=== PATIENT | male | born 1985 | race Caucasian/White ===

== ENCOUNTER 2019-05-30 15:04 | Emergency (ER) | payer OTHER, SELFPAY ==
[2019-05-30 15:24] VITALS: BP 136/64; PULSE 91; RESP 20; TEMP 36; O2SAT 100
--- NOTE | 2019-05-30 15:56 | ED.URI ---
HPI - URI/Sore Throat General Chief Complaint: Upper Respiratory Infection Stated Complaint: sore throat Time Seen by Provider: 05/30/19 15:45 Source: patient Mode of arrival: ambulatory Limitations: no limitations History of Present Illness HPI Narrative: Octaviano Dwyer is a 33 yo male with no PMH who cmes to express care with a diagnosis of influenza B from his primary care physician and he is taking Tamiflu and now test positive for strep. He has been febrile on and off for the last couple days states that he is unable to really swallow much besides thin fluids; has a lot of upper sinus congestion and states that he feels poorly Related Data Home Medications Medication Instructions Recorded Confirmed oseltamivir 75 mg BID 05/30/19 05/30/19 Allergies Allergy/AdvReac Type Severity Reaction Status Date / Time No Known Allergies Allergy Verified 05/30/19 15:28 Review of Systems Review of Systems: Narrative: CONSTITUTIONAL: Denies fever, chills, sweats. EYES: Denies visual changes, redness, discharge. ENT: Has rhinorrhea, congestion, sore throat, no otalgia. CARDIOVASCULAR: Denies chest pain, palpitations, edema. RESPIRATORY: Denies dyspnea, wheezing, mild cough GASTROINTESTINAL: Denies abdominal pain, nausea, vomiting, diarrhea. GENITOURINARY: Denies dysuria, hematuria, abnormal discharge SKIN: Denies rash or itching. NEUROLOGIC: Denies numbness, or focal weakness. PSYCHIATRIC: Denies anxiety or depression. [facility] Family History Family History Other Heart disease Social History Social History (Updated 05/30/19 @ 15:59 by Maya Gomez CNP) Smoking status: Never smoker Alcohol intake: current Gender identity (if verbalized by the patient): Male Comments At time of signature, I agree with nursing past medical, surgical, social and family history. There is no relevant family history pertinent to the presenting complaint. Exam Narrative: Exam Narrative: GENERAL: This is a well-nourished, well-developed patient, in moderate distress. HEAD: normocephalic, atraumatic. EYES: Sclera clear/white. Vision is grossly intact. EARS: External ears normal, Hearing grossly intact. NOSE: External nose normal with no obvious nasal discharge, nares without redness, no rhinorrhea. THROAT: Mucous membranes moist, posterior pharynx erythema; he is swallowing on exam NECK: Neck supple, non-tender withlymphadenopathy, CARDIOVASCULAR: Tachycardic and rhythm without murmurs, gallops, or rubs. RESPIRATORY: Clear to auscultation. Breath sounds equal bilaterally. No wheezes, rales, or rhonchi. GASTROINTESTINAL: Abdomen soft, non-tender, nondistended. SKIN: warm, intact with no suspicious lesions or rash, good texture and turgor. NEURO: awake, alert, and oriented to person, place and time. There were no obvious focal neurologic abnormalities. Steady gait EXTREMITIES: Normal range of motion. No edema.. BACK: Nontender without deformity or crepitance. Course Course Emergency Course: Strep positive Started on prednisone and penicillin Vital Signs Vital signs: Vital Signs Temperature 96.8 F L 05/30/19 15:24 Pulse Rate 91 05/30/19 15:24 Respiratory Rate 20 05/30/19 15:24 Blood Pressure 136/64 05/30/19 15:24 Pulse Oximetry 100 05/30/19 15:24 Temperature 96.8 F L 05/30/19 15:24 Pulse Rate 91 05/30/19 15:24 Respiratory Rate 20 05/30/19 15:24 Blood Pressure 136/64 05/30/19 15:24 Pulse Oximetry 100 05/30/19 15:24 MDM - URI/Sore Throat Differential Diagnosis Differential diagnosis: Likely upper respiratory infection, bronchitis, influenza and pharyngitis Lab Data Labs: Strep Screen Positive Group A Strep *(Reference Range: Negative)* Discharge Plan Discharge Clinical Impression: Influenza Pharyngitis Qualifiers: Pharyngitis/tonsillitis etiology: streptococcus Qualified Code(s): J0
== END 2019-05-30 16:04 | disposition home or self-care (01) ==
PROVIDERS: Emergency Provider Nurse Practitioner
DX: J10.1 Influenza due to other identified influenza virus with other respiratory manifestations (principal)
CPT/HCPCS: 87880; 99203; G0463

== ENCOUNTER 2020-05-09 10:10 | Emergency (ER) | payer OTHER, SELFPAY ==
[2020-05-09 10:30] VITALS: BP 179/91; PULSE 83; RESP 16; TEMP 36.3; O2SAT 98
--- NOTE | 2020-05-09 10:55 | ED.URI ---
HPI - URI/Sore Throat General Chief Complaint: Ear Stated Complaint: rt ear inf Time Seen by Provider: 05/09/20 10:45 Source: patient and RN notes reviewed Mode of arrival: ambulatory Limitations: no limitations History of Present Illness HPI Narrative: Patient presents today with a 1 week history of right ear pain and popping, nasal congestion in the morning and the evening. Reports the ear pain is waking him up at night. Denies cough, rhinorrhea, fever, sore throat, ear drainage. Currently rates his pain 6/10 and has been taking Tylenol and ibuprofen without much relief. History of several sinus and tear duct surgeries as a child. MD elicited complaint: nasal congestion and other (Ear pain) Related Data Allergies Allergy/AdvReac Type Severity Reaction Status Date / Time No Known Allergies Allergy Verified 05/30/19 15:28 Review of Systems Review of Systems: Narrative: CONSTITUTIONAL: Denies body aches, fever, chills, or sweats. EYES: Denies visual changes, redness, or discharge. ENT: Denies rhinorrhea, sore throat. + Right ear pain, nasal congestion CARDIOVASCULAR: Denies chest pain, palpitations, or edema. RESPIRATORY: Denies cough or dyspnea. GASTROINTESTINAL: Denies abdominal pain, nausea, vomiting, or diarrhea. GENITOURINARY: Denies dysuria or hematuria. SKIN: Denies rash, itching, or wounds. MUSCULOSKELETAL: Denies back pain, joint pain, or myalgia. NEUROLOGIC: Denies headache, numbness, tingling, or weakness. PSYCH: Denies depression or anxiety. [facility] Surgical History Surgical History (Updated 05/09/20 @ 10:57 by Elsy Duke, [employer], ) H/O sinus surgery Family History Family History Other Heart disease Social History Social History (Updated 05/09/20 @ 10:57 by Elsy Duke, [facility], ) Smoking status: Never smoker Tobacco type: smokeless tobacco Smokeless tobacco user: chewing tobacco Alcohol intake: current Gender identity (if verbalized by the patient): Male Comments At time of signature, I have reviewed and agree with nursing past medical, surgical, social and family history unless otherwise noted. Please see nursing chart for further information. There is no relevant family history pertinent to the presenting complaint Exam Narrative: Exam Narrative: GENERAL: Well-appearing, well-nourished, and in no acute distress. HEAD: Normocephalic, atraumatic. EYES: EOMI. No redness or drainage. Conjunctivae normal. ENT: Mucous membranes pink and moist. Nares congested. Bilateral erythematous and swollen nasal turbinates with purulent discharge. No rhinorrhea. TMs normal bilaterally with small amount of clear fluid behind them. Throat normal. Uvula midline. NECK: Normal AROM. Supple. No lymphadenopathy. CHEST: No respiratory distress. Clear to auscultation. HEART: Regular rate and rhythm. No murmur appreciated. Normal peripheral pulses. EXTREMITIES: Normal range of motion. No edema. SKIN: Warm, dry, no rash. Capillary refill normal. Normal skin turgor. NEURO: No focal deficits. Alert and oriented x3. Gait steady. PSYCH: Normal affect. No signs of depression or anxiety. Course Vital Signs Vital signs: Vital Signs Temperature 97.4 F L 05/09/20 10:30 Pulse Rate 83 05/09/20 10:30 Respiratory Rate 16 05/09/20 10:30 Blood Pressure 179/91 H 05/09/20 10:30 Pulse Oximetry 98 05/09/20 10:30 Temperature 97.4 F L 05/09/20 10:30 Pulse Rate 83 05/09/20 10:30 Respiratory Rate 16 05/09/20 10:30 Blood Pressure 179/91 H 05/09/20 10:30 Pulse Oximetry 98 05/09/20 10:30 Reviewed. Pt has been instructed to follow up with his PCP regarding his elevated blood pressure today. MDM - URI/Sore Throat Differential Diagnosis Differential diagnosis: Likely upper respiratory infection, otitis media, sinusitis, viral infection and other (Otitis externa, ruptured TM, serous otitis, eustachian tube dysfunction, cerum
[2020-05-09 11:13] VITALS: BP 156/96
== END 2020-05-09 11:18 | disposition home or self-care (01) ==
PROVIDERS: Emergency Provider Nurse Practitioner
DX: J01.90 Acute sinusitis, unspecified (principal)
CPT/HCPCS: 99213; G0463

== ENCOUNTER 2020-11-21 10:10 | Emergency (ER) | payer OTHER, SELFPAY ==
[2020-11-21 10:19] VITALS: BP 168/83; PULSE 65; RESP 12; TEMP 36.6; O2SAT 99
--- NOTE | 2020-11-21 10:42 | ED.EAR ---
HPI - Ear Problem General Chief complaint: Ear Stated complaint: earache Source: patient and RN notes reviewed Limitations: no limitations History of Present Illness HPI Narrative: The unvaccinated patient, previously mostly healthy drinker/ only tobacco chewer, presents with ear discomfort. Patient states he has a shorter, half week history of right ear pains. No fever, URI?sinusitis, so recent swimming, discharge; symptoms are mild, slightly worse with palpation. Related Data Allergies Allergy/AdvReac Type Severity Reaction Status Date / Time No Known Allergies Allergy Verified 11/21/20 10:19 Review of Systems Review of Systems: The patient has been informed that they may have pre-hypertension or Hypertension based on a BP reading in the department. I recommend that the patient call the primary care provider listed on their discharge instructions or a physician of their choice this week to arrange follow up for further evaluation of possible pre-hypertension or Hypertension General/Constitutional: No weight loss,fever Eyes: N0: Redness,discharge Ears/Nose/Throat: No: Epistaxis,ear discharge Respiratory: Denies: Hemoptysis Gastrointestinal: No Vomiting, Bleeding-rectal Skin: No Lumps, eruption Neurologic: No Focal Weakness,Sz Hematologic: Denies: Petechiae/Purpura Psychiatric: No: Suicida ideationl All Other Systems: Reviewed and Negative [facility] Surgical History Surgical History (Updated 05/09/20 @ 10:57 by Elsy Duke, [facility], ) H/O sinus surgery Family History Family History Other Heart disease Social History Social History (Updated 05/09/20 @ 10:57 by Elsy Duke, [facility], ) Smoking status: Never smoker Tobacco type: smokeless tobacco Smokeless tobacco user: chewing tobacco Alcohol intake: current Gender identity (if verbalized by the patient): Male Comments At time of signature, agree with nursing past medical, surgical, social and family history. There is no relevant family history pertinent to the presenting complaint Exam Narrative: General Appearance: Well appearing, No distress EYE: PERRLA, Conjunctiva clear Ears: Right EAC inflamed, narrow with scant mucopus, left TM and external ear normal Nose: Normal nose Mouth/Throat: Normal appearing, Normal lips, Supple Respiratory: Airway patent, No respiratory distress Musculoskeletal: Full ROM Skin: Warm, Dry Neurological: A&O x3, CN II-X intact Psychiatric: Normal mood, Normal affect Course Vital Signs Vital signs: Vital Signs Temperature 97.9 F 11/21/20 10:19 Pulse Rate 65 11/21/20 10:19 Respiratory Rate 12 11/21/20 10:19 Blood Pressure 168/83 H 11/21/20 10:19 Pulse Oximetry 99 11/21/20 10:19 Temperature 97.9 F 11/21/20 10:19 Pulse Rate 65 11/21/20 10:19 Respiratory Rate 12 11/21/20 10:19 Blood Pressure 168/83 H 11/21/20 10:19 Pulse Oximetry 99 11/21/20 10:19 Medical Decision Making Vital Signs Vital Signs: Vital Signs Temperature 97.9 F 11/21/20 10:19 Pulse Rate 65 11/21/20 10:19 Respiratory Rate 12 11/21/20 10:19 Blood Pressure 168/83 H 11/21/20 10:19 Pulse Oximetry 99 11/21/20 10:19 Temperature 97.9 F 11/21/20 10:19 Pulse Rate 65 11/21/20 10:19 Respiratory Rate 12 11/21/20 10:19 Blood Pressure 168/83 H 11/21/20 10:19 Pulse Oximetry 99 11/21/20 10:19 Discharge Plan Discharge Clinical Impression: Otitis externa Qualifiers: Otitis externa type: unspecified type Chronicity: acute Laterality: right Qualified Code(s): H60.501 - Unspecified acute noninfective otitis externa, right ear Patient Disposition: Home, Self-Care Condition: Stable Instructions: Antibiotic Form, Swimmer's Ear (ED) Prescriptions: New [id number] 3.5-10,000-1 mg/mL-unit/mL-% solution 4 drop RIGHT EAR Q8H Qty: 10 RF: 0 ciprofloxacin HCl [Cipro] 250 mg tablet
== END 2020-11-21 11:00 | disposition home or self-care (01) ==
PROVIDERS: Emergency Provider Emergency Medicine; PCP Internal Medicine
DX: H60.501 Unspecified acute noninfective otitis externa, right ear (principal)
CPT/HCPCS: 99213; G0463

== ENCOUNTER 2024-03-02 10:04 | Emergency (ER) | payer OTHER, SELFPAY ==
[2024-03-02 10:34] VITALS: BP 149/99; PULSE 80; RESP 18; TEMP 36.1; O2SAT 99
--- NOTE | 2024-03-02 10:50 | ED.GENADULT ---
HPI - General Adult General Chief complaint: Extremity Problem,Nontraumatic Stated complaint: foot pain Time Seen by Provider: 03/02/24 10:50 Source: patient Mode of arrival: ambulatory Limitations: no limitations History of Present Illness HPI narrative: 38-year-old male patient presents to the [facility] complaints of right great toe pain for the past 10 days. Patient states has been getting significantly worse especially whenever he puts on his work boots. Patient states he noticed some swelling. Patient states he has been taking some ibuprofen has not really been helping the pain. Patient states is very sensitive to the touch especially when anything is on it even his blanket. Patient denies any specific injury to the foot. Denies fevers, body aches or chills. Denies any history of diabetes Related Data Allergies Allergy/AdvReac Type Severity Reaction Status Date / Time No Known Allergies Allergy Verified 03/02/24 10:39 Review of Systems Review of Systems: CONSTITUTIONAL: Denies fever, chills, or sweats. EYES: Denies visual changes, redness, or discharge. ENT: Denies rhinorrhea, congestion, sore throat, or otalgia. CARDIOVASCULAR: Denies chest pain, palpitations, or edema. RESPIRATORY: Denies cough or dyspnea. GASTROINTESTINAL: Denies abdominal pain, nausea, vomiting, or diarrhea. GENITOURINARY: Denies dysuria or hematuria. SKIN: Denies rash or itching. MUSCULOSKELETAL: Denies back pain, positive right great toe joint pain, denies myalgia. NEUROLOGIC: Denies headache, numbness, or weakness. PSYCHIATRIC: Denies anxiety or depression. [facility] Surgical History Surgical History H/O sinus surgery Family History Family History Other Heart disease Social History Social History Smoking status: Never smoker Tobacco type: smokeless tobacco Smokeless tobacco user: chewing tobacco Alcohol intake: current Gender identity (if verbalized by the patient): Male Comments At the time of my signature I agree with nursing past medical history, surgical, social, and family history. There is no relevant family history pertinent to the presenting complaint. Exam Narrative: GENERAL: Well-appearing, well-nourished, and in no acute distress. HEAD: Normocephalic, atraumatic. EYES: PERRLA and EOMI. ENT: Nares clear, no rhinorrhea or epistaxis. Mucous membranes moist. NECK: Supple. No lymphadenopathy CHEST: Clear to auscultation. No respiratory distress. HEART: Regular rate and rhythm. No murmur heard. Normal peripheral pulses. ABDOMEN: Soft, nontender, nondistended, normal active bowel sounds. EXTREMITIES: Patient able to bear weight and ambulate with pain. No surface trauma, slight erythema noted as compared to the left toe, no lesions, ulcers or break in skin integrity. swelling noted to the right great toe as compared to the left.The R foot is without obvious asymmetry or deformity when compared to the L foot. No bony step-off, tender to palpation over the Right great toes joint, no tenderness over themidfoot or hindfoot or sole. Normal plantar/dorsiflexion, inversion/eversion. Distal motor and neurovascular status are intact SKIN: Warm, dry, no rash. NEURO: No focal deficits. Alert and oriented x3. Course Course Level of Care: Express Care Visit Vital Signs Vital signs: Vital Signs Temperature 36.1 C L 03/02/24 10:34 Pulse Rate 80 03/02/24 10:34 Respiratory Rate 18 03/02/24 10:34 Blood Pressure 149/99 H 03/02/24 10:34 Pulse Oximetry 99 03/02/24 10:34 Oxygen Delivery Room Air 03/02/24 10:34 Temperature 36.1 C L 03/02/24 10:34 Pulse Rate 80 03/02/24 10:34 Respiratory Rate 18 03/02/24 10:34 Blood Pressure 149/99 H 03/02/24 10:34 Pulse Oximetry 99 03/02/24 10:34 Oxygen Delivery Room Air 03/02/24 10:34 Vital signs reviewed. The patient has been informed that they may have pre-hypertension or Hypertension based on a BP reading in the department. I recommend that the patient call the primary care provider listed on their discharge instructions or a physician of their choice this week to arrange follow up for further evaluation of possible pre-hypertension or Hypertension Medical Decision Making MDM Narrative Medical decision making narrative: discussed with patient this does appear most likely as a gout flare up. Discussed with him that he needs to follow low purine diet and I will give him some steroids to help with the pain and he should also follow up with his primary doctor to possibly get on some medication to help prevent gout flare-ups in the future but will need to get his kidneys checked as well. Patient verbalized understanding denies any other questions or concerns at this time. Differential Diagnosis Differential Diagnosis: Differential diagnosis: Foot fracture, crush injury, compartment syndrome, contusion, sprain, tendinitis,lisfranc sprain or fracture, avulsion fracture, grown toenail, diabetic ulcer. Vital Signs Vital Signs: Vital Signs Temperature 36.1 C L 03/02/24 10:34 Pulse Rate 80 03/02/24 10:34 Respiratory Rate 18 03/02/24 10:34 Blood Pressure 149/99 H 03/02/24 10:34 Pulse Oximetry 99 03/02/24 10:34 Oxygen Delivery Room Air 03/02/24 10:34 Temperature 36.1 C L 03/02/24 10:34 Pulse Rate 80 03/02/24 10:34 Respiratory Rate 18 03/02/24 10:34 Blood Pressure 149/99 H 03/02/24 10:34 Pulse Oximetry 99 03/02/24 10:34 Oxygen Delivery Room Air 03/02/24 10:34 Critical Care Time Critical Care Time Critical Care Time: No Discharge Plan Discharge Clinical Impression: Acute gout of right foot Qualifiers: Gout etiology: unspecified cause Qualified Code(s): M10.9 - Gout, unspecified Patient Disposition: Home, Self-Care Condition: Stable Instructions: Antibiotic Form, Low Purine Diet (ED), Gout (ED) Additional Instructions: Gout is a form of arthritis that causes severe joint pain, redness, swelling and stiffness. Acute gout pain started suddenly, gets worse quickly, and stops on its own. Acute gout can become chronic and cause permanent damage to the joints. Contact your primary care physician or go to the ER if: You have severe pain in one or more of the joints the you cannot tolerate You have a fever or redness that spreads beyond the joint area You have new symptoms, such as a rash, after you start gout treatment Your joint pain and swelling do not go away even after the treatment You are not urinating as much or as often as she usually do You have trouble taking your gout medicines Take prescribed medication as directed May take Tylenol or ibuprofen as needed for swelling, pain and fever Please follow-up with your primary care physician to be assessed for possible daily medications to help with gout attacks. Prescriptions: New prednisone 50 mg tablet 50 mg PO DAILY 7 Days Qty: 7 0RF Follow-up/Referrals: PHYSICIAN,INFRASTRUCTURE ADMINISTRATOR [Primary Care Provider] - Stand Alone Forms: Work/School Release IP Time of Disposition: 11:01
== END 2024-03-02 11:07 | disposition home or self-care (01) ==
PROVIDERS: Emergency Provider Nurse Practitioner Family
DX: M10.9 Gout, unspecified (principal); F17.220 Nicotine dependence, chewing tobacco, uncomplicated
CPT/HCPCS: 99213; G0463